=== PATIENT | female | born 2005 | race Caucasian/White ===

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

== ENCOUNTER 2024-03-12 16:41 | Outpatient (CLI) | payer BC, SELFPAY ==
--- NOTE | ~2024-03-12 | XR_ITS ---
XR hand LT 2V Ordering provider: Neil Justin History: . MULTIPLE JOINT PAIN . Comparison: None. FINDINGS: BONES: No acute fracture or dislocation. JOINT SPACES: Well maintained. SOFT TISSUES: Unremarkable. IMPRESSION: No acute osseous abnormality left hand. Reviewed, dictated and finalized at location A.
--- NOTE | ~2024-03-12 | XR_ITS ---
XR hand RT 2V Ordering provider: Neli Justin History: . MULTIPLE JOINT PAIN . Comparison: None. FINDINGS: BONES: No acute fracture or dislocation. JOINT SPACES: Normal. SOFT TISSUES: Normal. IMPRESSION: No acute osseous abnormality right hand. Reviewed, dictated and finalized at location A.
== END 2024-03-12 16:42 | disposition home or self-care (01) ==
DX: M25.549 Pain in joints of unspecified hand (principal); M25.542 Pain in joints of left hand
CPT/HCPCS: 73120

== ENCOUNTER 2025-03-12 09:45 | Emergency (ER) | payer BC, SELFPAY ==
[2025-03-12 10:05] VITALS: BP 99/73; PULSE 99; RESP 16; TEMP 37.2; O2SAT 100
--- NOTE | 2025-03-12 10:09 | ED.NAVMDI ---
HPI - Nausea/Vomiting/Diarrhea General Chief complaint: Nausea/Vomiting/Diarrhea Stated complaint: Nausea/Hives Patient presents to the [facility] with complaints of nausea, vomiting, diarrhea with abdominal cramping that began 2 days ago. Patient noted she has not eaten much yesterday and today due to the symptoms. No known sick contacts. Denies significant abdominal pain, Fever, chills, body aches. Patient also noted woke up this morning with hives to neck and chest as well as chin with lower lip swelling and tongue felt weird. reports taking Benadryl and the symptoms have significantly improved only noted minimal red to chest. Unsure of what she came in contact with. Patient reports she does have her EpiPen due to the peanut allergy but knows she did not come in contact with peanuts. Denies shortness of breath or wheezing. Related Data Home Medications ?Medication ?Instructions ?Recorded ?Confirmed ?Last Taken ?Type cetirizine 10 mg tablet (Zyrtec) 10 mg PO DAILY 05/09/19 05/09/19 Unknown History fluticasone propionate 93 intranasal 03/12/25 Unknown History mcg/actuation breath activated aerosol (Xhance) hydroxychloroquine 200 mg tablet mg PO 03/12/25 Unknown History norethindrone (contraceptive) 0.35 mg 03/12/25 Unknown History mg tablet (Jencycla) Allergies Allergy/AdvReac Type Severity Reaction Status Date / Time peanut Allergy Severe Anaphylaxis Verified 03/12/25 10:07 sesame seed AdvReac Severe Nausea Verified 03/12/25 10:07 Review of Systems Constitutional: Constitutional: Reports as per HPI, Denies chills, Denies fatigue, Denies fever(s) and Denies weakness Eyes: Eyes: Reports no additional eye complaints ENT: Reports as per HPI, Denies vertigo, Denies dizziness, Denies nasal congestion and Denies sore throat Cardiovascular: Cardiovascular: Reports no additional cardiovascular complaints Respiratory: Respiratory: Reports as per HPI, Denies chest congestion, Denies cough, Denies dyspnea and Denies wheezing Gastrointestinal: Gastrointestinal: Reports as per HPI, Denies abdominal pain, Reports diarrhea, Reports nausea and Reports vomiting Genitourinary: Genitourinary: Reports no additional female genitourinary complaints Musculoskeletal: Musculoskeletal: Reports as per HPI, Denies myalgias and Denies arthralgias Integumentary/Breasts: Skin/Breast: Reports as per HPI, Reports pruritus, Reports erythema, Reports rash and Denies skin ulcer Neurologic: Reports as per HPI, Denies vertigo, Denies dizziness, Denies focal weakness, Denies numbness and Denies weakness Psychiatric: Psychiatric: Reports no additional psychiatric complaints Endocrine: Endocrine: Reports no additional endocrine complaints Hematologic/Lymphatic: Hematologic/Lymphatic: Reports no additional hematologic/lymphatic complaints Allergic/Immunologic: Allergic/Immunologic: Reports as per HPI, Reports lip swelling, Denies throat swelling, Denies tongue swelling ( Tongue feels odd) and Denies wheezing Comments: hives to neck and chest Exam Const: General: healthy appearing and no acute distress Nutritional Appearance: well nourished Orientation/consciousness: patient oriented x3 Limitations: no limitations HENMT: Head: normal to inspection Face and sinus: normal facial exam and sinuses nontender Mouth: Yes Normal oral and palatal mucosa present, Yes lip normal and Yes moist mucous membranes Throat: posterior oropharynx normal Neck: Neck: normal visual inspection and no lymphadenopathy Chest: Chest palpation & inspection: abnormal inspection of the chest ( minimal hives noted) and no tenderness Resp: Effort & Inspection: normal respiratory effort Auscultation: clear to auscultation bilaterally Cardio: Rate: regular rate Rhythm: regular rhythm GI: GI Palp: Yes Soft to palpation, Yes Tenderness to palpation present (GI) ( epigastric), No Guarding due to palpation present (GI), No Hernia present and No Rebound tenderness present Auscultation: normal bowel sounds Skin: General skin exam: normal color Rashes: rash noted Wounds: no wounds Other: minimal hives noted to chest Neuro: General: patient oriented x3 and moves all extremities Speech: normal speech Gait exam (Neuro): Normal gait present Extrem: General: normal to inspection and no pedal edema Psych: Mental Status: mental status grossly normal Affect: normal affect Attitude: cooperative Course Course Level of Care: Express Care Visit MDM - Nausea/Vomiting/Diarrhea MDM Narrative Medical decision making narrative: likely 2 separate things- viral GI bug with allergic reaction. Patient does have an EpiPen at home. The patient was evaluated by myself in the express care. History is obtained from patient who is an independent historian and physical exam was performed. Available medical records were reviewed at this time. Exam findings show no acute concerns or changes; patient is non-toxic appearing and is in no distress. Patient is appropriate for outpatient treatment and follow-up. I have evaluated and discussed social determinants of health with the patient that could potentially impact subsequent diagnosis and treatment plans. Differential diagnosis and treatment plan were discussed with the patient. Patient agrees with discussion and after shared medical decision making agrees with plan of care. All questions were answered to the patient's satisfaction. Differential Diagnosis Differential diagnosis: Likely traveler's diarrhea, food poisoning, gastroenteritis, drug-induced nausea and vomiting, dehydration and other (allergic reaction ) Medical Records Attestation: I reviewed the patient's medical records. Discharge Plan Discharge Clinical Impression: Gastroenteritis, Allergic reaction Patient Disposition: Home Condition: Stable Instructions: Antibiotic Form, Urticaria (ED), Clear Liquid Diet (ED), Acute Nausea and Vomiting (ED), Cold Compress or Soak (ED) Additional Instructions: Start oral steroid taper tomorrow. Recommended taking Claritin / Damari/ Zyrtec daily and Benadryl as needed. Also recommended taking Pepcid 20 mg twice daily. If you began to notice significant shortness of breath, wheezing, tongue swelling or lip swelling go to the emergency room for further evaluation start by moving to a clear liquid diet today until the nausea, vomiting, diarrhea significantly improved. May use the Zofran / ondansetron as needed for nausea vomiting. May slowly increase diet as tolerated. If you began to notice significant abdominal pain, unable to keep down fluids, blood in vomit, blood in stool, high fevers go to the emergency room for further evaluation of symptoms. Patient Language: E[place] Prescriptions: New methylprednisolone [Medrol (Corbin)] 4 mg tablets,dose pack See Rx Instructions .ROUTE .COMPLEX Qty: 21 0RF Rx Instructions: for 6 days ondansetron 4 mg tablet,disintegrating 4 mg PO Q8H PRN (Reason: nausea and vomiting) Qty: 20 0RF No Action cetirizine [Zyrtec] 10 mg Tablet 10 mg PO DAILY hydroxychloroquine 200 mg tablet PO norethindrone (contraceptive) [Jencycla] 0.35 mg tablet Xhance 93 mcg/actuation aerosol breath activated INTRANASAL Follow-up/Referrals: PHYSICIAN,TRANSPORTATION INSPECTOR [Primary Care Provider, Internal Medicine] Stand Alone Forms: Work/School Release IP Time of Disposition: 10:20
== END 2025-03-12 10:25 | disposition home or self-care (01) ==
PROVIDERS: Emergency Provider Nurse Practitioner Family
DX: K52.9 Noninfective gastroenteritis and colitis, unspecified (principal); L50.0 Allergic urticaria
CPT/HCPCS: 99213; G0463